=== PATIENT | male | born 1960 | race Caucasian/White ===

== ENCOUNTER 2022-10-12 19:45 | Inpatient (IN) | payer BC, SELFPAY ==
[2022-10-12] MEDS ORDERED: Ketorolac Tromethamine 30 MG/ML VIAL ONE (21:28)
[2022-10-12] MEDS ORDERED: Acetaminophen 500 MG TAB ONE (21:28)
[2022-10-12 22:54] LABS: Mean Corpuscular HGB CONC 32.9 g/dL (32.0-36.0); Mean Corpuscular Hemoglobin 31.9 pg (27.0-31.0); Platelet Count 210 10x3/uL (130-400); RBC Distribution Width 12.7 % (11.5-14.5); Red Blood Cell (RBC) Count 5.01 mill/uL (4.70-6.10); White Blood Cell (WBC) Count 22.2 10x3/uL (4.8-10.8)
[2022-10-12 22:55] LABS: ALT (SGPT) 26 U/L (8-55); AST (SGOT) 29 U/L (5-34); Albumin 4.6 g/dL (3.4-4.8); Alkaline Phosphatase 94 U/L (40-110); Anion Gap 16 mmol/L (10-20); BUN (Urea Nitrogen) 14 mg/dL (8.4-25.7); Bilirubin, Total 0.4 mg/dL (0.2-1.2); CK (CPK) 107 U/L (30-200); Calc. Creatinine Clearance 0 mL/min (70-130); Calcium 9.6 mg/dL (7.8-10.44); Carbon Dioxide 22 mmol/L (23-31); Chloride 104 mmol/L (98-107); Estimated GFR 71; Globulin 3.4 g/dL (2.4-3.5); Glucose 96 mg/dL (80-115); Potassium 4.5 mmol/L (3.5-5.1); Sodium 137 mmol/L (136-145)
[2022-10-12 23:14] LABS: SARS-CoV-2 NAA Rapid Test Not Detected (NotDetected)
[2022-10-12 23:14] LABS: Band 1 % (5-11); Lymphocytes 5 % (21-51); MDiff Complete? YES; Monocytes 5 % (0-10); Neutrophil 85 % (42-75); Platelet Morphology Comment Appears Adequate; RBC Morphology Normal; Reactive Lymphocytes 4 % (0-10)
[2022-10-13 00:29] LABS: Bacteria/HPF None Seen HPF (None Seen); Bilirubin Negative (Negative); Blood, Urine Negative (Negative); Clarity Clear (Clear); Glucose, Urine (Dipstick) Normal (Negative); Ketone, Urine Negative (Negative); Leukocyte 25 Leu/uL (Negative); Nitrite Negative (Negative); Protein, Urine (Dipstick) Negative (Neg-Trace); RBC/HPF 0-3 HPF (0-3); Specific Gravity, Urine 1.013 (1.002-1.036); Squamous Epithelial None Seen HPF (0-3); Urobilinogen Normal mg/dL (Less than 2); pH, Urine 5.5 (5.0-9.0)
[2022-10-13] MEDS ORDERED: Piperacillin/Tazobactam 3.375 GM VIAL ONE (01:09)
[2022-10-13] MEDS ORDERED: Vancomycin 1 GM/200 ML (FROZEN) BAG ONE (01:09)
[2022-10-13 01:37] LABS: Lactic Acid 2.4 mmol/L (0.5-2.2)
[2022-10-13] MEDS ORDERED: Ondansetron ODT 4 MG TAB PO PRN (02:34)
[2022-10-13] MEDS ORDERED: Senokot S 8.6-50 MG TAB PO PRN (02:34)
[2022-10-13] MEDS ORDERED: Lactated Ringer's 1,000 ML IV SCH (02:45)
[2022-10-13 02:59] LABS: Troponin I Less than 0.010 ng/mL (< 0.028)
[2022-10-13] MEDS: Cefepime 1 GM in Sodium Chloride 0.9% 100 ML IVPB SCH ×2 (05:04→16:15)
[2022-10-13] MEDS: Acetaminophen 325 MG TAB PO PRN ×3 (05:24→23:49)
[2022-10-13 05:42] LABS: Hemoglobin 14.9 g/dL (14.0-18.0); Mean Corpuscular HGB CONC 32.8 g/dL (32.0-36.0); Mean Corpuscular Volume 97.7 fl (78.0-98.0); Mean Platelet Volume 7.7 fL (7.4-10.4); Platelet Count 179 10x3/uL (130-400); RBC Distribution Width 12.6 % (11.5-14.5); Red Blood Cell (RBC) Count 4.67 mill/uL (4.70-6.10); White Blood Cell (WBC) Count 28.1 10x3/uL (4.8-10.8)
[2022-10-13 05:57] VITALS: BMI 34.8
[2022-10-13 05:57] LABS: ALT (SGPT) 26 U/L (8-55); AST (SGOT) 24 U/L (5-34); Albumin 3.7 g/dL (3.4-4.8); Alkaline Phosphatase 63 U/L (40-110); Anion Gap 15 mmol/L (10-20); BUN (Urea Nitrogen) 11 mg/dL (8.4-25.7); Bilirubin, Total 0.7 mg/dL (0.2-1.2); Calc. Creatinine Clearance 0 mL/min (70-130); Calcium 8.6 mg/dL (7.8-10.44); Carbon Dioxide 18 mmol/L (23-31); Chloride 109 mmol/L (98-107); Estimated GFR 85; Globulin 2.6 g/dL (2.4-3.5); Glucose 121 mg/dL (80-115); Potassium 4.1 mmol/L (3.5-5.1); Protein, Total 6.3 g/dL (5.8-8.1); Sodium 138 mmol/L (136-145)
[2022-10-13 06:04] LABS: Troponin I Less than 0.010 ng/mL (< 0.028)
[2022-10-13 06:05] LABS: Band 14 % (5-11); Lymphocytes 8 % (21-51); MDiff Complete? YES; Monocytes 3 % (0-10); Neutrophil 75 % (42-75)
[2022-10-13] MEDS ORDERED: Vancomycin 1 GM in Premix Bag 1 BAG IVPB SCH (09:00)
[2022-10-13] MEDS ORDERED: Cetirizine HCl 10 MG TAB PO SCH (09:00)
[2022-10-13] MEDS ORDERED: DILTIAZEM HCL 360 MG PO SCH (09:00)
[2022-10-13] MEDS ORDERED: Allopurinol 100 MG TAB PO SCH (09:00)
[2022-10-13] MEDS ORDERED: Iopamidol-370 76% 500 ML MDV (1 ML CHARGE) ONE (09:52)
[2022-10-13] MEDS: Lactated Ringer's 1,000 ML IV SCH ×2 (10:05→19:15)
[2022-10-13] MEDS: Famotidine 20 MG TAB PO SCH ×2 (10:10→21:08)
[2022-10-13] MEDS: Allopurinol 300 MG TAB PO SCH (10:10)
[2022-10-13] MEDS: Loratadine 10 MG TAB PO SCH (10:10)
[2022-10-13] MEDS: Bupropion 150 MG SR TAB PO SCH ×2 (10:11→21:08)
[2022-10-13] MEDS: VANCOMYCIN 2 GRAM/500 ML BAG 2 GM in Premix Bag 1 BAG IVPB SCH ×3 (10:11→22:29)
[2022-10-13 10:58] LABS: Free T4 (Free Thyroxine) 0.73 ng/dL (0.70-1.48)
[2022-10-13] MEDS: metroNIDAZOLE 500 MG in Premix Bag 1 BAG IVPB SCH ×2 (14:11→21:11)
[2022-10-13] MEDS ORDERED: Simvastatin 20 MG TAB PO SCH (21:00)
[2022-10-13] MEDS: Atorvastatin Calcium 10 MG TAB PO SCH (21:08)
[2022-10-14] MEDS: Cefepime 1 GM in Sodium Chloride 0.9% 100 ML IVPB SCH ×2 (03:36→17:18)
[2022-10-14 05:11] LABS: #Lymphocytes 1.7 thou/uL (1.20-3.40); #Monocytes 0.6 thou/uL (0.11-0.59); #Neutrophils 13.1 thou/uL (1.40-6.50); %Basophils 0.1 % (0.0-1.0); %Eosinophils 0.2 % (0.0-10.0); %Lymphocytes 10.8 % (21.0-51.0); %Monocytes 3.7 % (0.0-10.0); %Neutrophils 85.2 % (42.0-75.0); Hemoglobin 12.9 g/dL (14.0-18.0); Mean Corpuscular HGB CONC 31.6 g/dL (32.0-36.0); Mean Corpuscular Hemoglobin 30.8 pg (27.0-31.0); Mean Corpuscular Volume 97.5 fl (78.0-98.0); Mean Platelet Volume 7.7 fL (7.4-10.4); Platelet Count 175 10x3/uL (130-400); RBC Distribution Width 12.8 % (11.5-14.5); White Blood Cell (WBC) Count 15.4 10x3/uL (4.8-10.8)
[2022-10-14] MEDS: metroNIDAZOLE 500 MG in Premix Bag 1 BAG IVPB SCH ×2 (05:24→15:00)
[2022-10-14 05:27] LABS: ALT (SGPT) 22 U/L (8-55); AST (SGOT) 19 U/L (5-34); Albumin 3.2 g/dL (3.4-4.8); Alkaline Phosphatase 59 U/L (40-110); Anion Gap 10 mmol/L (10-20); BUN (Urea Nitrogen) 11 mg/dL (8.4-25.7); Bilirubin, Direct 0.2 mg/dL (0.1-0.3); Bilirubin, Total 0.4 mg/dL (0.2-1.2); Calc. Creatinine Clearance 140 mL/min (70-130); Calcium 8.5 mg/dL (7.8-10.44); Carbon Dioxide 22 mmol/L (23-31); Chloride 110 mmol/L (98-107); Estimated GFR 96; Glucose 103 mg/dL (80-115); Magnesium 1.8 mg/dL (1.6-2.6); Potassium 3.5 mmol/L (3.5-5.1); Protein, Total 5.6 g/dL (5.8-8.1); Sodium 138 mmol/L (136-145)
[2022-10-14 05:28] LABS: Hemoglobin A1c 5.5 % (4.0-6.0)
[2022-10-14] MEDS: Lactated Ringer's 1,000 ML IV SCH ×3 (08:44→21:55)
[2022-10-14] MEDS: Famotidine 20 MG TAB PO SCH ×2 (08:45→19:29)
[2022-10-14] MEDS: Bupropion 150 MG SR TAB PO SCH ×2 (08:45→19:29)
[2022-10-14] MEDS: Loratadine 10 MG TAB PO SCH (08:45)
[2022-10-14] MEDS: Allopurinol 300 MG TAB PO SCH (08:45)
[2022-10-14] MEDS: VANCOMYCIN 2 GRAM/500 ML BAG 2 GM in Premix Bag 1 BAG IVPB SCH (09:01)
[2022-10-14] MEDS: Acetaminophen 325 MG TAB PO PRN ×2 (12:34→21:57)
[2022-10-14] MEDS: cefTRIAXone\\ROCEPHIN 2 GM in Sodium Chloride 0.9% 100 ML IVPB SCH (19:24)
[2022-10-14] MEDS: Atorvastatin Calcium 10 MG TAB PO SCH (19:29)
[2022-10-14] MEDS: Clindamycin/D5W 600 MG in Premix Bag 1 BAG IVPB SCH (21:50)
[2022-10-15] MEDS: Clindamycin/D5W 600 MG in Premix Bag 1 BAG IVPB SCH ×3 (05:25→21:31)
[2022-10-15 06:10] LABS: #Eosinphils 0.2 thou/uL (0.0-0.7); #Lymphocytes 1.6 thou/uL (1.20-3.40); #Monocytes 0.9 thou/uL (0.11-0.59); #Neutrophils 10.4 thou/uL (1.40-6.50); %Basophils 0.4 % (0.0-1.0); %Eosinophils 1.4 % (0.0-10.0); %Lymphocytes 12.3 % (21.0-51.0); %Monocytes 6.6 % (0.0-10.0); %Neutrophils 79.2 % (42.0-75.0); Hemoglobin 12.7 g/dL (14.0-18.0); Mean Corpuscular HGB CONC 33.3 g/dL (32.0-36.0); Mean Corpuscular Hemoglobin 32.2 pg (27.0-31.0); Mean Corpuscular Volume 96.9 fl (78.0-98.0); Mean Platelet Volume 8.4 fL (7.4-10.4); Platelet Count 155 10x3/uL (130-400); RBC Distribution Width 12.8 % (11.5-14.5); Red Blood Cell (RBC) Count 3.95 mill/uL (4.70-6.10); White Blood Cell (WBC) Count 13.2 10x3/uL (4.8-10.8)
[2022-10-15 06:29] LABS: Anion Gap 13 mmol/L (10-20); BUN (Urea Nitrogen) 11 mg/dL (8.4-25.7); Calc. Creatinine Clearance 148 mL/min (70-130); Calcium 8.2 mg/dL (7.8-10.44); Carbon Dioxide 22 mmol/L (23-31); Chloride 108 mmol/L (98-107); Estimated GFR 98; Glucose 101 mg/dL (80-115); Magnesium 1.8 mg/dL (1.6-2.6); Potassium 3.5 mmol/L (3.5-5.1); Sodium 139 mmol/L (136-145)
[2022-10-15] MEDS: Bupropion 150 MG SR TAB PO SCH ×2 (08:42→20:50)
[2022-10-15] MEDS: Loratadine 10 MG TAB PO SCH (08:42)
[2022-10-15] MEDS: Lactated Ringer's 1,000 ML IV SCH ×2 (08:42→12:19)
[2022-10-15] MEDS: Famotidine 20 MG TAB PO SCH ×2 (08:42→20:51)
[2022-10-15] MEDS: Allopurinol 300 MG TAB PO SCH (08:43)
[2022-10-15] MEDS: Acetaminophen 325 MG TAB PO PRN ×2 (08:51→20:50)
[2022-10-15] MEDS: cefTRIAXone\\ROCEPHIN 2 GM in Sodium Chloride 0.9% 100 ML IVPB SCH (20:49)
[2022-10-15] MEDS: Atorvastatin Calcium 10 MG TAB PO SCH (20:50)
[2022-10-16] MEDS: Clindamycin/D5W 600 MG in Premix Bag 1 BAG IVPB SCH (05:08)
[2022-10-16 05:12] LABS: #Eosinphils 0.5 thou/uL (0.0-0.7); #Monocytes 0.9 thou/uL (0.11-0.59); #Neutrophils 9.1 thou/uL (1.40-6.50); %Basophils 0.3 % (0.0-1.0); %Eosinophils 3.7 % (0.0-10.0); %Lymphocytes 15.7 % (21.0-51.0); %Monocytes 7.1 % (0.0-10.0); %Neutrophils 73.1 % (42.0-75.0); Hemoglobin 12.8 g/dL (14.0-18.0); Mean Corpuscular HGB CONC 32.9 g/dL (32.0-36.0); Mean Corpuscular Hemoglobin 31.7 pg (27.0-31.0); Mean Corpuscular Volume 96.4 fl (78.0-98.0); Mean Platelet Volume 8.2 fL (7.4-10.4); Platelet Count 201 10x3/uL (130-400); RBC Distribution Width 12.7 % (11.5-14.5); Red Blood Cell (RBC) Count 4.02 mill/uL (4.70-6.10); White Blood Cell (WBC) Count 12.4 10x3/uL (4.8-10.8)
[2022-10-16 05:38] LABS: Anion Gap 13 mmol/L (10-20); BUN (Urea Nitrogen) 9 mg/dL (8.4-25.7); Calc. Creatinine Clearance 158 mL/min (70-130); Calcium 8.6 mg/dL (7.8-10.44); Carbon Dioxide 23 mmol/L (23-31); Chloride 106 mmol/L (98-107); Estimated GFR 100; Glucose 92 mg/dL (80-115); Magnesium 1.8 mg/dL (1.6-2.6); Potassium 3.1 mmol/L (3.5-5.1); Sodium 139 mmol/L (136-145)
[2022-10-16] MEDS ORDERED: Potassium Chloride 20 MEQ TAB PO SCH (07:15)
[2022-10-16] MEDS: Famotidine 20 MG TAB PO SCH ×2 (08:53→20:05)
[2022-10-16] MEDS: Loratadine 10 MG TAB PO SCH (08:53)
[2022-10-16] MEDS: Lactated Ringer's 1,000 ML IV SCH (08:53)
[2022-10-16] MEDS: Allopurinol 300 MG TAB PO SCH (08:53)
[2022-10-16] MEDS: Bupropion 150 MG SR TAB PO SCH ×2 (08:53→20:04)
[2022-10-16] MEDS: Atorvastatin Calcium 10 MG TAB PO SCH (20:04)
[2022-10-16] MEDS: cefTRIAXone\\ROCEPHIN 2 GM in Sodium Chloride 0.9% 100 ML IVPB SCH (20:05)
[2022-10-17] MEDS: Lactated Ringer's 1,000 ML IV SCH (04:40)
[2022-10-17 05:13] LABS: #Eosinphils 0.6 thou/uL (0.0-0.7); #Lymphocytes 2.7 thou/uL (1.20-3.40); #Neutrophils 7.3 thou/uL (1.40-6.50); %Basophils 0.4 % (0.0-1.0); %Eosinophils 4.8 % (0.0-10.0); %Lymphocytes 23.2 % (21.0-51.0); %Monocytes 8.9 % (0.0-10.0); %Neutrophils 62.7 % (42.0-75.0); Hemoglobin 13.4 g/dL (14.0-18.0); Mean Corpuscular Hemoglobin 32.4 pg (27.0-31.0); Mean Corpuscular Volume 95.4 fl (78.0-98.0); Mean Platelet Volume 7.4 fL (7.4-10.4); Platelet Count 207 10x3/uL (130-400); RBC Distribution Width 12.8 % (11.5-14.5); Red Blood Cell (RBC) Count 4.14 mill/uL (4.70-6.10); White Blood Cell (WBC) Count 11.6 10x3/uL (4.8-10.8)
[2022-10-17 05:39] LABS: Anion Gap 13 mmol/L (10-20); BUN (Urea Nitrogen) 8 mg/dL (8.4-25.7); Calc. Creatinine Clearance 143 mL/min (70-130); Calcium 8.8 mg/dL (7.8-10.44); Carbon Dioxide 22 mmol/L (23-31); Chloride 106 mmol/L (98-107); Estimated GFR 97; Glucose 97 mg/dL (80-115); Magnesium 1.9 mg/dL (1.6-2.6); Potassium 3.4 mmol/L (3.5-5.1); Sodium 138 mmol/L (136-145)
[2022-10-17] MEDS: Famotidine 20 MG TAB PO SCH (08:10)
[2022-10-17] MEDS: Allopurinol 300 MG TAB PO SCH (08:11)
[2022-10-17] MEDS: Bupropion 150 MG SR TAB PO SCH (08:11)
[2022-10-17] MEDS: Loratadine 10 MG TAB PO SCH (08:11)
[2022-10-17] MEDS ORDERED: Potassium Chloride 20 MEQ TAB PO SCH (08:30)
[2022-10-17] MEDS: cefTRIAXone\\ROCEPHIN 2 GM in Sodium Chloride 0.9% 100 ML IVPB SCH (15:59)
[2022-10-17 16:35] VITALS: BP 166/92; TEMP 97.1
== END 2022-10-17 16:50 | disposition home or self-care (01) | DRG 872 ==
LOC: ERS 19:45 → 2SW 10-13 01:46 → OBSVTOIN 10-13 08:42
PROVIDERS: ADMIT Student in an Organized Health Care Education/Training Program; ATTEND Internal Medicine
PROC: 3E03329 Introduction of Other Anti-infective into Peripheral Vein, Percutaneous Approach (ICD-10-PCS; 2022-10-13)
PROC: 02HV33Z Insertion of Infusion Device into Superior Vena Cava, Percutaneous Approach (ICD-10-PCS; principal; 2022-10-16)
PROC: B5181ZA Fluoroscopy of Superior Vena Cava using Low Osmolar Contrast, Guidance (ICD-10-PCS; 2022-10-16)
PROC: B548ZZA Ultrasonography of Superior Vena Cava, Guidance (ICD-10-PCS; 2022-10-16)
DX: A40.8 Other streptococcal sepsis (principal); E87.20 Acidosis, unspecified; K92.0 Hematemesis; L03.116 Cellulitis of left lower limb; E78.5 Hyperlipidemia, unspecified; I10 Essential (primary) hypertension; M10.9 Gout, unspecified; I80.9 Phlebitis and thrombophlebitis of unspecified site; K04.7 Periapical abscess without sinus; F32.A Depression, unspecified; Z20.822 Contact with and (suspected) exposure to COVID-19; E05.80 Other thyrotoxicosis without thyrotoxic crisis or storm; E78.00 Pure hypercholesterolemia, unspecified; E87.6 Hypokalemia; Z98.890 Other specified postprocedural states; I25.2 Old myocardial infarction
CPT/HCPCS: 36415; 36416; 36569; 70487; 71045; 71260; 74177; 80048; 80053; 80076; 81003; 81015; 82550; 83036; 83605; 83735; 83880; 84439; 84443; 84481; 84484; 85025; 86140; 87040; 87077; 87086; 87149; 87186; 93005; 96361; 96367; 96374; 96375; C1751; G0378; J0692; J0696; J1885; J2543; J3370; J3370-JW; J3490; J7120; Q0162; Q9967